=== PATIENT | female | born 1990 | race Caucasian/White ===

== ENCOUNTER 2018-02-10 07:23 | Inpatient (IN) | payer OTHER ==
[2018-02-07 14:13] VITALS: BMI 43.0
[2018-02-10 08:11] LABS: #Basophils 0.1 thou/uL (0.0-0.2); #Eosinphils 0.3 thou/uL (0.0-0.7); #Lymphocytes 1.7 thou/uL (1.20-3.40); #Monocytes 0.5 thou/uL (0.11-0.59); #Neutrophils 4.2 thou/uL (1.40-6.50); %Basophils 0.8 % (0.0-1.0); %Eosinophils 4.4 % (0.0-10.0); %Lymphocytes 25.5 % (21.0-51.0); %Monocytes 6.8 % (0.0-10.0); %Neutrophils 62.5 % (42.0-75.0); Hemoglobin 12.9 g/dL (12.0-16.0); Mean Corpuscular HGB CONC 33.4 g/dL (32.0-36.0); Mean Corpuscular Hemoglobin 29.3 pg (27.0-31.0); Mean Corpuscular Volume 87.8 fL (78.0-98.0); Mean Platelet Volume 7.2 fL (7.4-10.4); Platelet Count 335 thou/uL (130-400); RBC Distribution Width 13.1 % (11.5-14.5); Red Blood Cell (RBC) Count 4.39 mill/uL (4.20-5.40); White Blood Cell (WBC) Count 6.7 thou/uL (4.8-10.8)
[2018-02-10 08:19] LABS: BHCG - Serum Negative (NEGATIVE); Pregs Control Background? CLEAR/WHITE (CLR/WHITE); Pregs Control Bar Appear? YES (CONTROL BAR)
[2018-02-10] MEDS ORDERED: CEFAZOLIN 2 GM/50 ML BAG ONE (08:19)
[2018-02-10 08:35] LABS: Anion Gap 9 mmol/L (10-20); BUN (Urea Nitrogen) 9 mg/dL (7.0-18.7); Calc. Creatinine Clearance 249 mL/min (70-130); Calcium 9.3 mg/dL (7.8-10.44); Carbon Dioxide 28 mmol/L (22-29); Chloride 105 mmol/L (98-107); Estimated GFR-MDRD Greater than 90; Glucose 111 mg/dL (70-105); Potassium 4.4 mmol/L (3.5-5.1); Sodium 138 mmol/L (136-145)
[2018-02-10] MEDS ORDERED: Midazolam HCl 2 mg/2 ml Vial ONE ×2 (08:38→10:55)
[2018-02-10] MEDS ORDERED: Sodium Chloride 0.9% 10 ML ONE (09:36)
[2018-02-10] MEDS ORDERED: Fentanyl 100 MCG/2 ML VIAL ONE ×3 (10:55→12:55)
[2018-02-10] MEDS ORDERED: Morphine 10 MG/ML VIAL ONE (12:05)
[2018-02-10] MEDS ORDERED: PACU-Morphine 4MG/ML VIAL SLOW IVP PRN (12:26)
[2018-02-10] MEDS ORDERED: Promethazine HCl 25 MG/ML VIAL IM PRN ×2 (12:26→16:00)
[2018-02-10] MEDS ORDERED: Promethazine HCl 25 MG/ML VIAL SLOW IVP PRN (12:26)
[2018-02-10] MEDS ORDERED: Ondansetron HCl/PF 4 MG/2 ML Vial IVP PRN (12:26)
--- NOTE | 2018-02-10 12:52 | OP ---
DATE OF PROCEDURE: 02/10/2018 FINANCIAL SERVICES ASSOCIATE: Juan. PROCEDURES PERFORMED: Re-exploration of left L4-L5 diskectomy, left L4-L5 laminectomy, facetectomy, and foraminotomy, interbody arthrodesis, intervertebral biomechanical device, local morselized autograft, demineralized bone matrix, posterolateral arthrodesis, pedicle screw instrumentation, left L4-L5. DESCRIPTION OF PROCEDURE: The patient was brought to the operating room and intubated. She was rolled in prone position on gel-flat chest rolls. The previous incision was exposed and extended. The procedure was quite difficult given her very large body habitus. We exposed the left L4-L5 region and the prior laminectomy in this area. We performed a left L4-L5 laminectomy, facetectomy, and foraminotomy, and then explored the left L4-L5 disk and found the expected disk herniation. This was removed in multiple fragments. Part of the disk centrally was calcified and this was tamped down with a down pushing curette. A complete decompression of left L5 was achieved. Next, the bony endplates were decorticated for the purpose of arthrodesis and an appropriate-sized intervertebral Biomechanical PEEK device was brought into the field, filled with demineralized bone matrix, local morselized autograft, and tapped into place securely at L4-L5. Next, pedicle screws were placed at left L4 and left L5 using lateral fluoroscopic guidance, and the position was confirmed with rotational x-ray. Demetri was secured between the screws, connected by nuts, which were final tightened with compression applied. The wound was then extensively irrigated and maximum hemostasis was secured. Combination of demineralized bone matrix and local morselized autograft was laid over the right lamina and posterolateral surfaces for the purpose of arthrodesis. Vancomycin powder was applied and the wound was then closed in anatomic layers. Job ID: [id number]
[2018-02-10] MEDS ORDERED: Morphine 4 MG/ML VIAL ONE (13:18)
[2018-02-10] MEDS ORDERED: Promethazine HCl 25 MG/ML VIAL ONE (13:18)
[2018-02-10] MEDS ORDERED: Morphine 2 MG/ML SYRINGE ONE ×2 (13:34→14:49)
[2018-02-10] MEDS ORDERED: Morphine 4 MG/ML VIAL SLOW IVP PRN ×2 (16:00→16:02)
[2018-02-10] MEDS ORDERED: diphenhydrAMINE 25 MG CAP PO PRN (16:00)
[2018-02-10] MEDS ORDERED: Ondansetron PF 4 MG/2 ML Vial IM PRN (16:00)
[2018-02-10] MEDS ORDERED: Promethazine 25 MG TAB PO PRN (16:00)
[2018-02-10] MEDS ORDERED: CEFAZOLIN 2 GM/50 ML-DEXTROSE 2 GM in Premix Bag 1 BAG IVPB SCH (16:00)
[2018-02-10] MEDS ORDERED: Promethazine HCl 12.5 MG SUPP PR PRN (16:00)
[2018-02-10] MEDS ORDERED: HYDROcodone/Acetaminophen 10/325 mg Tablet PO PRN (16:00)
[2018-02-10] MEDS ORDERED: Milk Of Magnesia 30 ML UDCUP PO PRN (16:00)
[2018-02-10] MEDS ORDERED: Mag-Al 1200 mg/1200 mg/30 ML UDCUP PO PRN (16:00)
[2018-02-10] MEDS ORDERED: traMADol HCl 50 MG TAB PO PRN ×2 (16:00)
[2018-02-10] MEDS ORDERED: diphenhydrAMINE 50 MG/ML VIAL IVP PRN (16:00)
[2018-02-10] MEDS: Sodium Chloride 0.9% 1,000 ML IV SCH (17:54)
[2018-02-10] MEDS: tiZANidine HCl 4 MG TAB PO PRN (17:55)
[2018-02-10] MEDS: HYDROcodone/Acetaminophen 10/325 mg Tablet PO PRN (17:56)
[2018-02-10] MEDS: CEFAZOLIN 2 GM/50 ML-DEXTROSE 2 GM in Premix Bag 1 BAG IVPB SCH (18:57)
[2018-02-10] MEDS ORDERED: Dexamethasone 20 MG/5 ML VIAL ONE (19:57)
[2018-02-10] MEDS ORDERED: PROPOFOL 200 MG/20 ML VIAL ONE (19:57)
[2018-02-10] MEDS ORDERED: Ketorolac Tromethamine 30 MG/ML VIAL ONE (19:57)
[2018-02-10] MEDS ORDERED: Lidocaine 1% PF 5 ML VIAL ONE (19:57)
[2018-02-10] MEDS ORDERED: Glycopyrrolate 0.2 MG/ML 5 ML SYRINGE ONE (19:57)
[2018-02-10] MEDS ORDERED: Ondansetron PF 4 MG/2 ML Vial ONE (19:57)
[2018-02-11] MEDS: CEFAZOLIN 2 GM/50 ML-DEXTROSE 2 GM in Premix Bag 1 BAG IVPB SCH (03:14)
[2018-02-11] MEDS: HYDROcodone/Acetaminophen 10/325 mg Tablet PO PRN ×3 (03:19→16:21)
[2018-02-11] MEDS ORDERED: Dexamethasone 10 MG/ML VIAL SLOW IVP SCH (07:00)
[2018-02-11] MEDS: Sodium Chloride 0.9% 1,000 ML IV SCH ×2 (08:09→20:09)
[2018-02-11] MEDS: tiZANidine HCl 4 MG TAB PO PRN (11:15)
[2018-02-11] MEDS: Cephalexin 250 MG CAP PO SCH ×2 (18:15→23:38)
[2018-02-12] MEDS: HYDROcodone/Acetaminophen 10/325 mg Tablet PO PRN ×2 (05:07→10:29)
[2018-02-12] MEDS: Cephalexin 250 MG CAP PO SCH (05:08)
[2018-02-12 07:10] VITALS: BP 118/75; TEMP 97.4
[2018-02-12] MEDS: Sodium Chloride 0.9% 1,000 ML IV SCH (08:00)
--- NOTE | 2018-02-13 00:56 | DIS ---
DATE OF ADMISSION: 02/10/2018 DATE OF DISCHARGE: 02/12/2018 HOSPITAL COURSE: The patient is a 28-year-old female, status post L4-L5 decompression and fusion. Following her surgery, she was transitioned to the floor where her pain was well controlled with p.o. medications, she was tolerating a regular diet, and voiding appropriately. Postoperatively the patient did develop left footdrop. She worked with Physical Therapy and was ambulating steadily with a walker. I discussed this with Dr. Scales and he anticipates that this will improve with time. The patient was also treated with 10 mg of IV Decadron. I am visiting with the patient on postoperative day #2 this morning. She is awake, alert, comfortable, in no acute distress. She has weakness with dorsiflexion and slight weakness with plantar flexion on the left. No proximal left leg weakness. She has remainder of strength throughout, 5/5. She has normal reflexes. Negative straight leg raise. We will plan to dismiss the patient to home. I have discussed home care precautions and will initiate physical therapy after initial postoperative visit. The patient has been provided with a rolling walker, which she should use it at all times for ambulation. Job ID: [id number]
== END 2018-02-12 11:20 | disposition home or self-care (01) | DRG 460 ==
LOC: SDC 07:23 → 3SE 08:30 → OBSVTOIN 08:30 → T4-B 02-11 16:59
PROVIDERS: ADMIT Neurological Surgery; ATTEND Neurological Surgery
PROC: 0SG00AJ Fusion of Lumbar Vertebral Joint with Interbody Fusion Device, Posterior Approach, Anterior Column, Open Approach (ICD-10-PCS; principal; 2018-02-10)
DX: M51.16 Intervertebral disc disorders with radiculopathy, lumbar region (principal); M21.372 Foot drop, left foot; E78.5 Hyperlipidemia, unspecified; F17.200 Nicotine dependence, unspecified, uncomplicated
CPT/HCPCS: 36415; 76001; 80048; 84703; 85025; 96374; C1713; C1768; G8978-GP-CL; G8979-GP-CI; J1100; J1885; J2001; J2250; J2270; J2405; J2550; J2704; J3010; J3370; J3490

== ENCOUNTER 2018-02-28 09:15 | Outpatient (CLI) | payer OTHER ==
--- NOTE | 2018-02-28 09:43 | RAD ---
LUMBAR SPINE SERIES 2 VIEWS: Date: 02/28/18 HISTORY: Postop. FINDINGS: The vertebral bodies are normal in height. Post laminectomy changes are seen at L4 with left unilater al pedicle screws seen at the L4-5 level. Markers of a disc implant are within the confines of the di sc level. IMPRESSION: Postoperative changes of the spine. POS: [facility]
== END 2018-02-28 09:16 | disposition home or self-care (01) ==
LOC: TBSIIMAG 09:15
PROVIDERS: ATTEND Neurological Surgery
DX: M54.9 Dorsalgia, unspecified (principal); Z98.890 Other specified postprocedural states
CPT/HCPCS: 72100

== ENCOUNTER 2018-04-10 15:03 | Outpatient (CLI) | payer OTHER ==
--- NOTE | 2018-04-10 19:28 | RAD ---
LUMBAR SPINE TWO VIEWS: Comparison: 02-28-18 History: Intravertebral disc displacement. FINDINGS: Stable post-operative changes of the unilateral left sided transpedicular screw at L4 and L5. No ciara hardware lucency. Stable disc prosthesis at L4-5. No spondylolisthesis or spondylosis. IMPRESSION: Stable fusion changes at L4-5. POS: [facility]
== END 2018-04-10 15:04 | disposition home or self-care (01) ==
LOC: TBSIIMAG 15:03
PROVIDERS: ATTEND Neurological Surgery
DX: M51.26 Other intervertebral disc displacement, lumbar region (principal); Z98.1 Arthrodesis status
CPT/HCPCS: 72100

== ENCOUNTER 2018-07-10 07:07 | Day surgery (SDC) | payer OTHER ==
[2018-07-09 14:44] VITALS: BMI 43.0
[2018-07-10] MEDS ORDERED: Lorazepam 1 MG TAB ONE (07:48)
[2018-07-10 08:18] VITALS: BP 163/97; TEMP 97.2
--- NOTE | 2018-07-10 08:40 | RAD ---
XR Myelogram Lumbar Spine History: [Left radiculopathy] Comparison: None. Findings: Patient was brought to the fluoroscopy suite. All questions were answered. Informed consent was obtained. Timeout performed. The patient's back was prepped and draped in normal sterile fashion. There is extensive scar formatio n between the skin and the posterior elements. Informed consent was obtained. Timeout performed. 2 mL buffered lidocaine was instilled into the superficial and deep soft tissues. Using a 22-gauge sp inal needle the thecal sac was accessed. Clear CSF was visualized. 10 mL of contrast was instilled into the thecal sac. There may be an epidural component of contrast instillation. Impression: Technically successful fluoroscopic guided lumbar myelogram.
--- NOTE | 2018-07-10 09:38 | CT ---
CT Lumbar Spine W Con History: [Radiculopathy. Pain. Left foot numbness.] Comparison: Myelogram same day Findings: The aortic contour is normal. No retroperitoneal adenopathy. No hydronephrosis. Left unilateral posterior spinal fusion with transpedicular screws and interconnecting rods discectom y change. No hardware complication. No acute fracture or malalignment. Laminectomy changes at L4-L5. There are linear transverse oriented defects within the inferior facet margins of L3 bilaterally, chr onic in nature. Levels are as follows: L1/L2: Low-grade bilateral subfrontal disc osteophyte complexes. No neural foraminal or spinal canal narrowing. L2-3: There is a central disc protrusion with bilateral paracentral extension. There is narrowing of the thecal sac to approximately 5 mm. No significant neural foraminal extension. No neural foraminal narrowing. L3-4: Circumferential disc bulge with the disc osteophyte complex. There is posterior extension of th is bulge approximate 5 mm. Prior laminectomy changes improve the thecal sac dimension. There is moderate bilateral neural foraminal narrowing. L4-5: Discectomy change. Bilateral subforaminal disc osteophyte complexes. Moderate bilateral neural foraminal narrowing. L5-S1: Low-grade disc bulge. No neural foraminal or spinal canal narrowing. Impression: 1. Central and bilateral paracentral posterior disc protrusion at L2-3 narrowing the thecal sac to ap proximately 5 mm. 2. Moderate bilateral neural foraminal narrowing at L3-4 and L4-5 due to disc osteophyte complexes.
[2018-07-10] MEDS ORDERED: Iopamidol-M 200 41% 20 ML VIAL ONE (10:53)
== END 2018-07-10 10:00 | disposition home or self-care (01) ==
LOC: RAD 07:07
PROVIDERS: ATTEND Neurological Surgery
PROC: B01B1ZZ Fluoroscopy of Spinal Cord using Low Osmolar Contrast (ICD-10-PCS; principal; 2018-07-10)
DX: M51.16 Intervertebral disc disorders with radiculopathy, lumbar region (principal); F17.200 Nicotine dependence, unspecified, uncomplicated; F90.9 Attention-deficit hyperactivity disorder, unspecified type; F32.9 Major depressive disorder, single episode, unspecified; F41.9 Anxiety disorder, unspecified; E78.5 Hyperlipidemia, unspecified; Z79.899 Other long term (current) drug therapy
CPT/HCPCS: 62304; 72132; Q9966